=== PATIENT | male | born 1945 | race Caucasian/White ===

== ENCOUNTER → 2023-10-07 07:04 | Outpatient (REF) | payer MEDICARE, SELFPAY | LOC: DHCBC/DCA 07:04 | PROVIDERS: ATTENDING PHYSICIAN Internal Medicine Cardiovascular Disease; FAMILY PHYSICIAN Family Medicine | DX: I25.10 Atherosclerotic heart disease of native coronary artery without angina pectoris (principal) | CPT/HCPCS: 78452; 93017; A9500 ==

== ENCOUNTER 2023-10-21 05:52 | Day surgery (SDC) | payer MEDICARE, SELFPAY ==
[2023-10-21] VITALS (17 sets, daily range): BP systolic 114–150; BP diastolic 60–73; BMI 30.9
[2023-10-21] MEDS: LOW STRENGTH ASPIRIN 81 MG PO (06:44)
[2023-10-21] MEDS: NSS 277 ML IV (06:45)
[2023-10-21 06:49] LABS: Glucose - Point of Care 120 mg/dl (70-99)
[2023-10-21 09:16] LABS: ACT-LR - POC 242 Seconds (116-155)
--- NOTE | 2023-10-21 09:56 | ITS.CL.CATH ---
[employer] - Catheterization
Cardiac Catheterization
Procedure Report:
CARDIAC CATHETERIZATION REPORT
Date of Procedure: 10/21/2023
Referring: Dez Portillo MD
Indication: Exertional angina (throat burning with activity) with ischemic stress test
HEMODYNAMIC DATA
AO: 132/68
LV: 132/17
LEFT VENTRICULOGRAPHY: Moderate inferior hypokinesis with EF 46%-the inferior hypokinesis is new compared with the prior study from 2020
CORONARY ANGIOGRAPHY
Dominance: Right
Left Main: Normal
LAD: Tandem 30% and 40% mid LAD stenoses with otherwise trivial luminal irregularities in the LAD proper. The major diagonal branch has 30% proximal l stenosis
Circumflex: The medium to large ramus intermedius branch has 60-70% ostial/proximal stenosis. There is 70% ostial/proximal circumflex stenosis followed by a widely patent circumflex stent with no restenosis (CATHLEEN 10/2020). OM1 is small. OM 2 is
large and disease-free. The circumflex terminates with a tiny OM 3.
RCA: Dominant vessel with 95% highly calcified mid RCA stenosis
Angioplasty: At the conclusion of the diagnostic study, we proceeded with PCI of the 95% calcific mid RCA lesion. Heparin was used for anticoagulation. Plavix 600 mg was administered at the procedure conclusion. A 6 Nigerian JR4 guide catheter was
used. A BMW wire was advanced successfully into the distal RCA through the lesion. A 2.5 x 8 NC trek would not cross the highly calcified lesion. A 1.5 x 12 Euphora balloon would not cross the lesion. At this point it was clear that we would
require orbital atherectomy to treat the lesion effectively. A 5 Nigerian guide liner was advanced into the RCA for enhanced support. A fine cross exchange catheter was advanced through the lesion into the distal RCA allowing a wire exchange for the
Viper wire needed for atherectomy. The 5 Nigerian guide liner was removed. Using a diamondback CSI device, a total of 4 rounds were made at 80,000 RPM slowly through the lesion. This was followed by angioplasty with a 2.5 x 8 NC trek which had full
expansion at 10 ruthy. We then placed a 3.5 x 12 Xience CATHLEEN across the lesion with deployment pressure of 14 ruthy. This was followed by postdilatation with a 3.5 x 8 NC Euphora along the entire length of the stent to 17 ruthy. The final angiographic
result was outstanding. There were no procedural complications.
Closure Device: 6 Nigerian Angio-Seal RFA. Similar to what happened in 2020, we easily accessed the right radial artery but could not advance a wire more than several centimeters. Strongly recommend no further attempts at right radial access if he
requires future procedures.
Radiation (mGy): 73
DAP (cm2.Gy): 61.4
Fluoroscopy time: 16.3 minutes
CONCLUSIONS
1: Moderate inferior hypokinesis with EF 46%
2: Multivessel CAD as described. The circumflex stent placed in 2020 remains widely patent. There is ostial/proximal circumflex disease similar to its appearance on the prior study from 2020. Additionally, a moderate to large ramus intermedius
has 60-70% ostial/proximal stenosis similar to its appearance on the prior study from 2020. Treatment of the circumflex disease would jeopardize patency of the ramus. Since the degree of disease is similar to the prior study, this was not felt to
be necessary.
3. Successful stenting of highly calcified 95% mid RCA stenosis using orbital atherectomy followed by placement of 3.5 x 12 Xience CATHLEEN with outstanding angiographic result. Of note, there was no visible lesion at the site on the prior study from
October 2020.
4. Continue dual antiplatelet therapy and aggressive risk factor modification efforts
Copy to: Dez Portillo MD, Mike Ruano,
Dez Portillo MD, [facility], [facility]
[2023-10-21 10:06] LABS: Glucose - Point of Care 128 mg/dl (70-99)
--- NOTE | 2023-10-21 12:59 | W.PN.UPDATE ---
Update Note
Progress Note Update
78 yo WM s/p Arthrectomy and PCI RCA (same day). He feels good, no cp, sob, deloris diet, R fem site c/d/i no HT, soft closed with Angioseal, EKG SR no ST changes. He will be on DAPT ASA/Plavix. He has had LE edema not improved with lasix, will stop
amlodipine and metoprolol and switch to carvedilol 6.25 bid. Cardiac rehab c/s. He will f/u cbc 2 weeks. He is for d/c home after 3pm.
CONCLUSIONS
1: Moderate inferior hypokinesis with EF 46%
2: Multivessel CAD as described.� The circumflex stent placed in 2020 remains widely patent.� There is ostial/proximal circumflex disease similar to its appearance on the prior study from 2020.� Additionally, a moderate to large ramus intermedius
has 60-70% ostial/proximal stenosis similar to its appearance on the prior study from 2020.� Treatment of the circumflex disease would jeopardize patency of the ramus.� Since the degree of disease is similar to the prior study, this was not felt to
be necessary.
3.� Successful stenting of highly calcified 95% mid RCA stenosis using orbital atherectomy followed by placement of 3.5 x 12 Xience CATHLEEN with outstanding angiographic result.� Of note, there was no visible lesion at the site on the prior study from
October 2020.
4.� Continue dual antiplatelet therapy and aggressive risk factor modification efforts
Copy to: Dez Portillo MD, Mike Ruano, DO
[2023-10-21 13:28] LABS: ACT-LR - POC > 397 Seconds (116-155)
[2023-10-21 13:28] LABS: ACT-LR - POC > 397 Seconds (116-155)
== END 2023-10-21 15:00 | disposition home or self-care (01) ==
LOC: CATH 05:52
PROVIDERS: ATTENDING PHYSICIAN Internal Medicine Cardiovascular Disease; FAMILY PHYSICIAN Family Medicine
DX: I25.118 Atherosclerotic heart disease of native coronary artery with other forms of angina pectoris (principal); I25.84 Coronary atherosclerosis due to calcified coronary lesion; Z95.5 Presence of coronary angioplasty implant and graft; Z79.02 Long term (current) use of antithrombotics/antiplatelets; Z79.82 Long term (current) use of aspirin
CPT/HCPCS: 82962; 85347; 93005; 93458; C1724; C1725; C1760; C1769; C1874; C1887; C1894; C9602; Q9967

== ENCOUNTER → 2023-11-22 08:08 | Outpatient (REF) | payer MEDICARE, SELFPAY | LOC: DHCBC HW 08:08 | PROVIDERS: ATTENDING PHYSICIAN Nurse Practitioner; FAMILY PHYSICIAN Family Medicine | DX: R60.0 Localized edema (principal) | CPT/HCPCS: 93306 ==

== ENCOUNTER 2023-12-01 14:02 | Outpatient (RCR) | payer MEDICARE, SELFPAY ==
[2023-12-01 11:13] LABS: Glucose - Point of Care 129 mg/dl (70-99)
[2023-12-01 12:17] LABS: Glucose - Point of Care 129 mg/dl (70-99)
== END 2023-12-01 23:59 | disposition home or self-care (01) ==
LOC: CRHB 14:02
PROVIDERS: ATTENDING PHYSICIAN Internal Medicine Cardiovascular Disease
DX: I25.10 Atherosclerotic heart disease of native coronary artery without angina pectoris (principal); Z95.5 Presence of coronary angioplasty implant and graft
CPT/HCPCS: 82962; G0422; G0423

== ENCOUNTER 2024-01-03 08:30 | Outpatient (RCR) | payer MEDICARE, SELFPAY ==
[2023-12-06 08:41] LABS: Glucose - Point of Care 167 mg/dl (70-99)
[2023-12-06 09:33] LABS: Glucose - Point of Care 123 mg/dl (70-99)
[2023-12-08 08:40] LABS: Glucose - Point of Care 144 mg/dl (70-99)
[2023-12-08 09:31] LABS: Glucose - Point of Care 132 mg/dl (70-99)
[2023-12-13 08:34] LABS: Glucose - Point of Care 179 mg/dl (70-99)
[2023-12-13 09:24] LABS: Glucose - Point of Care 111 mg/dl (70-99)
[2023-12-15 08:33] LABS: Glucose - Point of Care 160 mg/dl (70-99)
[2023-12-15 09:28] LABS: Glucose - Point of Care 124 mg/dl (70-99)
[2023-12-20 08:33] LABS: Glucose - Point of Care 162 mg/dl (70-99)
[2023-12-20 09:31] LABS: Glucose - Point of Care 132 mg/dl (70-99)
== END 2024-01-03 23:59 | disposition home or self-care (01) ==
LOC: CRHB 08:30
PROVIDERS: ATTENDING PHYSICIAN Internal Medicine Cardiovascular Disease; FAMILY PHYSICIAN Family Medicine
DX: I25.10 Atherosclerotic heart disease of native coronary artery without angina pectoris (principal); Z95.5 Presence of coronary angioplasty implant and graft
CPT/HCPCS: 82962; G0422; G0423

== ENCOUNTER 2024-01-05 08:46 | Outpatient (RCR) | payer MEDICARE, SELFPAY | END 2024-01-05 23:59 | disposition home or self-care (01) | LOC: CRHB 08:46 | PROVIDERS: ATTENDING PHYSICIAN Internal Medicine Cardiovascular Disease; FAMILY PHYSICIAN Family Medicine | DX: I25.10 Atherosclerotic heart disease of native coronary artery without angina pectoris (principal); Z95.5 Presence of coronary angioplasty implant and graft | CPT/HCPCS: G0422 ==

== ENCOUNTER → 2024-08-30 11:35 | Outpatient (REF) | payer MEDICARE, SELFPAY | LOC: HWRAD 11:35 | PROVIDERS: ATTENDING PHYSICIAN Family Medicine | DX: J18.0 Bronchopneumonia, unspecified organism (principal) | CPT/HCPCS: 71046 ==

== ENCOUNTER → 2025-06-12 09:20 | Outpatient (REF) | payer MEDICARE, SELFPAY | LOC: RCS 09:20 | PROVIDERS: ATTENDING PHYSICIAN Student in an Organized Health Care Education/Training Program; FAMILY PHYSICIAN Internal Medicine | DX: I47.10 Supraventricular tachycardia, unspecified (principal); I49.3 Ventricular premature depolarization; I49.9 Cardiac arrhythmia, unspecified | CPT/HCPCS: 93225; 93226 ==

== ENCOUNTER 2025-07-24 09:24 | Day surgery (SDC) | payer MEDICARE, SELFPAY ==
[2025-07-15 08:51] VITALS: BMI 31.0
[2025-07-24 10:32] VITALS: BMI 30.1
[2025-07-24 10:35] LABS: Glucose - Point of Care 166 mg/dl (70-99)
== END 2025-07-24 11:40 | disposition home or self-care (01) ==
LOC: CATH 09:24
PROVIDERS: ATTENDING PHYSICIAN Student in an Organized Health Care Education/Training Program; FAMILY PHYSICIAN Internal Medicine; OTHER PHYSICIAN Student in an Organized Health Care Education/Training Program
DX: I25.10 Atherosclerotic heart disease of native coronary artery without angina pectoris (principal); Z95.5 Presence of coronary angioplasty implant and graft; I10 Essential (primary) hypertension; E78.5 Hyperlipidemia, unspecified; E11.40 Type 2 diabetes mellitus with diabetic neuropathy, unspecified; Z79.84 Long term (current) use of oral hypoglycemic drugs; E66.9 Obesity, unspecified; I47.20 Ventricular tachycardia, unspecified; I49.3 Ventricular premature depolarization; I48.0 Paroxysmal atrial fibrillation; M19.90 Unspecified osteoarthritis, unspecified site; M54.30 Sciatica, unspecified side; K58.9 Irritable bowel syndrome, unspecified; Z96.611 Presence of right artificial shoulder joint; Z96.652 Presence of left artificial knee joint; Z79.899 Other long term (current) drug therapy; Z79.01 Long term (current) use of anticoagulants; F17.290 Nicotine dependence, other tobacco product, uncomplicated
CPT/HCPCS: 82962; 92960; 93005